=== PATIENT | female | born 1985 | race Caucasian/White ===

== ENCOUNTER → 2018-01-16 | Outpatient (CLI) | payer OTHER | LOC: M RAD 14:26 | DX: Z36.89 Encounter for other specified antenatal screening (principal); Z3A.19 19 weeks gestation of pregnancy | CPT/HCPCS: 76811 ==

== ENCOUNTER 2018-03-31 20:19 | Outpatient (CLI) | payer OTHER ==
[~2018-03-31] VITALS: Ht 162.6 cm; Wt 68.9 kg
[2018-03-31 20:37] VITALS: BP 104/61
--- NOTE | 2018-03-31 21:52 | IPNPDOC ---
Text Note Date of Service The patient was seen on 03/31/18. NOTE 32 yo at 30+6 weeks gestation presented to L&D with the complaint of decreased movement. She reports feeling the baby, just not as much as usual. She denies any vaginal bleeding, leakage of fluid, or contractions. Her is uncomplicated. While in triage she felt movement. Vitals - VSS, afebrile, normotensive, non tachycardic. General - AAOX3, sitting up in bed, NAD Abdomen - Gravid uterus, no fundal tenderness Extremities - No edema FHR tracing - BL 130, moderate variability, +accels, no decels, Cat I tracing, and appropriate for gestational age NST reassuring and patient felt movement in triage and was reassured. Discharged home with return precautions. We discussed return precautions. Andrew Vasquez DO VS,Fishbone, I+O VS, Fishbone, I+O Vital Signs Date Time Temp Pulse Resp B/P (MAP) Pulse Ox O2 Delivery O2 Flow Rate FiO2 03/31/18 20:37 98.4 85 104/61 (75) ANDREW VASQUEZ DO Mar 31, 2018 21:52
== END 2018-03-31 21:40 | disposition home or self-care (01) ==
LOC: M LDO 20:19
PROVIDERS: ATTEND Obstetrics & Gynecology
DX: O36.8130 Decreased fetal movements, third trimester, not applicable or unspecified (principal); Z3A.30 30 weeks gestation of pregnancy
CPT/HCPCS: 59025; G0378; G0463

== ENCOUNTER 2018-05-06 21:54 | Outpatient (CLI) | payer OTHER ==
[~2018-05-06] VITALS: Ht 162.6 cm; Wt 73.5 kg
[2018-05-06 22:16] VITALS: BP 118/71
[2018-05-06] MEDS ORDERED: PRENTAB9 PO (22:22)
[2018-05-06] MEDS ORDERED: TUMS500C PO (22:22)
[2018-05-06] MEDS ORDERED: FERR325T3 PO (22:22)
[2018-05-06] MEDS ORDERED: VITA500T PO (22:22)
--- NOTE | 2018-05-06 22:59 | IPNPDOC ---
Text Note Date of Service The patient was seen on 05/06/18. NOTE 32 yo at 36+0 weeks presented to L&D with the complaint of intermittent contractions over the last couple days that have been increasing in frequency and intensity this evening. She denies any vaginal bleeding, discharge, or leakage of fluid. She endorses excellent movement. is uncomplicated. Chaperoned by ALBERTA Whelan - VSS, afebrile, normotensive, non tachycardic General - AAOX3, sitting up in bed, NAD Abdomen - Gravid uterus, no fundal tenderness Cervix - Ft/thick/high FHR tracing - Cat I tracing and reactive NST. sporadic contractions on toco No evidence of labor. Cervix thick and high. Benign exam. Reassuring status. Patient discharged with return precautions. Next appointment scheduled for Tuesday. Return to care sooner for any urgent concerns. All patient questions answered. Andrew Vasquez DO VS,Fishbone, I+O VS, Fishbone, I+O Vital Signs Date Time Temp Pulse Resp B/P (MAP) Pulse Ox O2 Delivery O2 Flow Rate FiO2 05/06/18 22:16 98.0 88 18 118/71 (87) ANDREW VASQUEZ DO May 06, 2018 22:58
== END 2018-05-06 23:05 | disposition home or self-care (01) ==
LOC: M LDO 21:54
PROVIDERS: ATTEND Obstetrics & Gynecology
DX: O47.03 False labor before 37 completed weeks of gestation, third trimester (principal); Z3A.36 36 weeks gestation of pregnancy
CPT/HCPCS: 59025; G0378; G0463

== ENCOUNTER 2018-05-30 20:21 | Outpatient (CLI) | payer OTHER ==
[~2018-05-30] VITALS: Ht 162.6 cm; Wt 76.6 kg
[~2018-05-30 20:21] MED LIST: FERR325T3 PO; PRENTAB9 PO; TUMS500C PO; VITA500T PO
[2018-05-30] MEDS ORDERED: BUTORPHANOL 2 MG/ML INJ (J0595) As Ordered ONE (22:12)
[2018-05-30] MEDS ORDERED: PROMETHAZINE INJ 25 MG/ML VIAL (J2550) As Ordered ONE (22:12)
--- NOTE | 2018-05-30 22:38 | IPNPDOC ---
Text Note Date of Service The patient was seen on 05/30/18. NOTE [id number] @ 2230 32 yo @ 39+3 by LMP([id number]) and 8+4 wk US on [id number] presents to L&D Triage with c/o CTXs Q 4-5 min for the past 2 hours. Reports she had her membranes stripped in clinic earlier today. Denies DFM, LOF, and vaginal bleeding. S: Pt resting in bed in left tilt with c/o of CTXs. Spouse is at bedside O: VS- WNL, afebrile FHR- 120. moderate variability, + accels, no decels CTX-Q 1->10 min SVE by RN- 1-2 cm/thick, no change from SVE in clinic per patient A: 32 yo @ 39+3 reactive NST with no cervical change from exam in clinic P: Discharge to home with strict return precautions. Spent 10 min counseling on return precautions. Pt and spouse verbalized understanding. BEBETO MORALES CNM May 30, 2018 22:38
[2018-05-30 22:54] VITALS: BP 98/59
== END 2018-05-30 23:07 | disposition home or self-care (01) ==
LOC: M LDO 20:21
PROVIDERS: ATTEND Obstetrics & Gynecology
DX: O47.1 False labor at or after 37 completed weeks of gestation (principal); Z3A.39 39 weeks gestation of pregnancy
CPT/HCPCS: 59025; G0378; G0463

== ENCOUNTER 2018-06-09 15:45 | Inpatient (IN) | payer OTHER ==
[~2018-06-09] VITALS: Ht 162.6 cm; Wt 76.8 kg
[2018-06-09] VITALS (9 sets, daily range): BP systolic 95–119; BP diastolic 58–80
[2018-06-09] MEDS: LR 1,000 ML IV SCH (18:34)
[2018-06-09] MEDS ORDERED: PENICILLIN G POTASSIUM IV 5 MU in D5W MINI-BAG PLUS 100 ML IV STA (18:37)
[2018-06-09] MEDS ORDERED: OXYTOCIN DRIP 30 UNITS in APPROPRIATE DILUENT 1 EA IV SCH (18:45)
[2018-06-09 18:56] LABS: HEMATOCRIT 38.3 % (36.0-47.0); HEMOGLOBIN 13.1 g/dl (12.0-15.5); MEAN CORPUSCULAR HEMOGLOBIN 31.3 pg (27.0-33.0); MEAN CORPUSCULAR HGB CONC 34.2 g/dl (32.0-36.5); MEAN CORPUSCULAR VOLUME 91.4 fl (80.0-96.0); PLATELET COUNT, AUTOMATED 177 10^3/uL (150-450); RED BLOOD COUNT 4.19 10^6/uL (4.00-5.40); WHITE BLOOD COUNT 8.7 10^3/uL (4.0-10.0)
--- NOTE | 2018-06-09 21:21 | HPE ---
DATE OF ADMISSION: 06/09/2018 This lady is a 33-year-old 2, para 1, last menstrual period (LMP) 08/27/2017, estimated date of delivery (EDC) 06/03/2018 at 40 and 6 weeks of gestation for induction of labor. Risk factors is she has anemia and has an excessive weight gain in the . PAST HISTORY 2016 at 40 weeks and 4 days spontaneous vaginal delivery of female 7 pounds 10 ounces, prolonged labor 14 hours duration. Labs show A+, HIV negative, hep negative, rubella nonimmune. Varicella immune. Urine negative. Gonorrhea and chlamydia are negative, GTT 28-week was 99. GBS is positive. On examination, no acute distress. Symphysis fundus height is 42, vertex presenting -3 station, cervix is posterior 2 cm, 70% effaced. No vaginal bleeding or loss. Blood pressure is 119/80, respirations are 18, pulse is 93, temperature is 98.9. Urine is 10/15, pH of 6 and trace of protein. She has a category one strip with quite a bit of activity and movement and also hyperirritable uterus. The rest of the examination is unremarkable. She is normal normocephalic, atraumatic. Neck: Full range of motion. Pupils equal and reactive to light. Distal pulses symmetric. No evidence of DVT, PE or superficial phlebitis. Lungs are clear bilaterally to bases. No wheezes or rhonchi. Abdomen is soft. Four quadrant bowel sounds are noted. Seems to be a lot of baby or amniotic fluid. No rashes, lesions or pruritus. No arthralgia, myalgia or joint pain. No cough, wheezes, shortness of breath or dyspnea on exertion. No infection. No bleeding. No bruising. Neuro complete. No incontinency, urgency or frequency. No nausea, vomiting, diarrhea or constipation. No diabetic issues. PAST MEDICAL HISTORY AND GYNE HISTORY : Unremarkable. PAST SURGICAL HISTORY: Noncontributory. FAMILY HISTORY: Noncontributory. SOCIAL HISTORY: She is to a soldier. There is no domestic violence. Good support system. Consent for vaginal delivery. Counseling includes delivery of the baby through the vagina with possible assistance of forceps or vacuum device if needed for maternal or indications. Forceps or vacuum are devices that can assist with vaginal delivery when normal pushing efforts cannot achieve delivery on their own or when delivery is needed in an emergency for baby's well-being. Medications may be required to induce or augment labor in order achieve vaginal delivery. A episiotomy may be required to help the baby deliver vaginally. May also require repair of any lacerations or tears of the vagina, vulva that are caused by delivery. In some cases emergencies can occur that require emergency delivery so quickly that consent forms are not completed because of no time. However physician will discuss the reasons and indications for section and this is a decision about an abdominal delivery in situations where section may be safer to mom and baby than continuing labor and only performed when clinically indicated. The risks of vaginal delivery include but are not limited to bleeding, infection, injury to the vagina, pelvic structures, injury to baby, damage to uterus, reaction to anesthesia, uterine rupture, risk of hysterectomy for life-threatening bleeding or . Medications used to induce or augment labor may increase the risk of infection, uterine tachysystole, uterine rupture, heart rate abnormalities, need for emergency section delivery for possible hysterectomy and hemorrhage. Additional risks for the use of forceps or vacuum include scratches, hematomas on the head or intracranial bleed. The patient expressed understanding, both her and her . All questions were answered. We did discuss the fact that she is GBS positive and the window of time that we would like to have before delivery is 4 hours. Therefore prophylactic penicillin will be started. We do not want to put a Flores bulb at the immediate present because of the GBS and she is having some uterine hypermobility. We will reevaluate her in 4 hours time and if appropriate either a Flores bulb will be placed and artificial rupture of membranes (AROM) or augmenting with oxytocin as the window for GBS positive will have passed and reduces the risk of infection to the fetus. All questions were answered.
[2018-06-09] MEDS: PENICILLIN G POTASSIUM IV 2.5 MU in APPROPRIATE DILUENT 1 EA IV SCH (23:40)
[2018-06-10] VITALS (37 sets, daily range): BP systolic 88–141; BP diastolic 53–87
[2018-06-10] MEDS ORDERED: FENTANYL 2MCG/ML ROPIVACAINE 0.2% IN 0.9% NACL 100ML IVBAG As Ordered ONE (00:10)
[2018-06-10] MEDS ORDERED: NALOXONE INJ 0.4 MG/1 ML VIAL (J2310) IV PRN (00:30)
[2018-06-10] MEDS ORDERED: FENTANYL/ROPIVACAINE/NACL BAG 100 ML EPIDURAL SCH (00:30)
[2018-06-10] MEDS ORDERED: ONDANSETRON 4MG/2ML VIAL (J2405) IV PRN (00:30)
[2018-06-10] MEDS ORDERED: EPIDURAL COMMENT XX SCH (00:30)
[2018-06-10] MEDS ORDERED: LACTATED RINGER'S 1000 ML IV PRN (00:30)
[2018-06-10] MEDS ORDERED: EPIDURAL/PCA KEYS XX PRN (00:30)
[2018-06-10] MEDS ORDERED: ePHEDrine SULFATE 25 MG/5 ML(5MG/ML) SYRINGE IV PRN (00:30)
[2018-06-10] MEDS ORDERED: REFRIGERATOR IV KEYS XX PRN (00:30)
[2018-06-10] MEDS ORDERED: diphenhydrAMINE INJ 50MG/ML VIAL (J1200) IV PRN (00:30)
[2018-06-10] MEDS: LR 1,000 ML IV SCH (02:34)
[2018-06-10] MEDS: PENICILLIN G POTASSIUM IV 2.5 MU in APPROPRIATE DILUENT 1 EA IV SCH (02:45)
[2018-06-10 05:07] LABS: CORD GAS ABE V -4.1; CORD GAS HCO3 V 21.7 MEQ/L; CORD GAS O2 SAT V 60.5 %; CORD GAS PCO2 V 42.4 mmHg; CORD GAS PH V 7.327 UNITS; CORD GAS PO2 V 25.7 mmHg; CORD GAS SBC V 20.1 MEQ/L
[2018-06-10] MEDS ORDERED: MOM 30ML SUSPENSION UDC PO PRN (05:15)
[2018-06-10] MEDS ORDERED: ANUSOL HC CREAM 30GM TOP PRN (05:15)
[2018-06-10] MEDS ORDERED: DOCUSATE SODIUM 100 MG CAP PO PRN (05:15)
[2018-06-10] MEDS ORDERED: MEASLES,MUMPS,RUBELLA VACCINE INJ (MMR-II) (90707) SC SCH (05:15)
[2018-06-10] MEDS ORDERED: RHOGAM 300 MCG (1500 IU) INJ (J2790) IM SCH (05:15)
[2018-06-10] MEDS ORDERED: DIBUCAINE 1% OINTMENT 30GM TOP PRN (05:15)
[2018-06-10] MEDS ORDERED: METHYLERGONOVINE MALEATE 0.2 MG TAB PO PRN (05:15)
[2018-06-10 05:18] LABS: CORD GAS ABE A -5.1; CORD GAS O2 SAT A 26.6 %; CORD GAS PH A 7.213 UNITS; CORD GAS PO2 A 15.7 mmHg; CORD GAS SBC A 18.5 MEQ/L; CORD GAS TCO2 A 25.9 MEQ/L
[2018-06-10] MEDS ORDERED: OXYTOCIN INJ 10 UNITS/ML VIAL (J2590) IV ONE (06:00)
[2018-06-10] MEDS: IBUPROFEN 600 MG TAB PO PRN ×3 (06:24→21:19)
[2018-06-10] MEDS: ACETAMINOPHEN 500 MG TAB PO PRN ×3 (06:24→17:20)
[2018-06-10] MEDS: PRENATAL VITAMINS CHEWABLE TABLET PO SCH (09:00)
--- NOTE | 2018-06-10 15:46 | DN ---
DATE: 06/10/2018 This is a 33-year-old 2 who was admitted induction of labor at 40 and 6 weeks of gestation. She was GBS positive. Was treated appropriately. She had augmentation of labor with Pitocin at the appropriate interval after epidural in place. She had artificial rupture of membranes (ARM) draining clear liquor, moderate amount of fluid consistent with polyhydramnios. Eventually at full dilatation had a spontaneous vaginal delivery over a midline episiotomy. A live- female , 10 pounds 1 ounce, 4584 grams. scores of 8 and 9 at one and five minutes, respectively. Arterial and venous pH were performed. The venous pH is available at 7.32, base excess -4.1. Arterial pH is not available at the present time. The placenta delivered spontaneously thereafter. Three-vessel cord. Membranes and tissues intact. The uterus contracted well down on Pitocin. The midline episiotomy was oversewn in the usual fashion with a 2-0 J339 Vicryl. Sphincter was intact. Lateral, posterior, and anterior hinojosa were intact. Uterus contracted well down with Pitocin drip. In summary, we have a post-age gestation induction of labor. Delivered a macrosomic female infant with a midline episiotomy, which was repaired in the usual fashion. The patient and baby tolerating the procedure well.
[2018-06-11] MEDS: ACETAMINOPHEN 500 MG TAB PO PRN ×2 (04:24→11:01)
[2018-06-11 05:55] VITALS: BP 104/59
[2018-06-11 07:08] LABS: HEMOGLOBIN 11.6 g/dl (12.0-15.5); MEAN CORPUSCULAR HEMOGLOBIN 30.7 pg (27.0-33.0); MEAN CORPUSCULAR HGB CONC 33.1 g/dl (32.0-36.5); MEAN CORPUSCULAR VOLUME 92.6 fl (80.0-96.0); PLATELET COUNT, AUTOMATED 206 10^3/uL (150-450); RED BLOOD COUNT 3.78 10^6/uL (4.00-5.40); WHITE BLOOD COUNT 11.9 10^3/uL (4.0-10.0)
[2018-06-11] MEDS: IBUPROFEN 600 MG TAB PO PRN (07:56)
--- NOTE | 2018-06-11 08:54 | IPNPDOC ---
Progress Note Date of Service: Jun 11, 2018 Day#: 1 Progress Note PPD 1 SUBJECT: Mari is a 33yo [id number] s/p uncomplicated at 40w6d after undergoing IOL with no vaginal laceration, doing well day # 1. She has been ambulating, voiding spontaneously without issue and tolerating regular diet. Breast feeding without issue. Reports lochia is like a normal period. No f /c/n/v/CP/SOB. OBJECTIVE: VITAL SIGNS: Within normal limits, afebrile. Alert and oriented times three. Abdomen: Fundus firm at U-2. Soft, NTTP. Extremities: no pain with palpation of calves ASSESSMENT: Mari is a 33yo [id number] s/p uncomplicated at 40w6d after undergoing IOL with no vaginal laceration, doing well day # 1. Vitals within normal limits, afebrile, hemodynamically stable with no evidence of infection. PLAN: 1. Discharge to home today. 2. Tylenol and Motrin for pain. 3. Encourage breast feeding and ambulation. 4. uncertain regarding contraception, will discuss at PP visit 5. Routine PP visit in 6 weeks in clinic. 6. Discussed return precautions at length. Dr. Rena Alvarado MD VS, I&O, 24H, Fishbone Vital Signs/I&O Vital Signs Date Time Temp Pulse Resp B/P (MAP) Pulse Ox O2 Delivery O2 Flow Rate FiO2 06/11/18 05:55 97.5 65 17 104/59 (74) I&O- Last 24 Hours up to 6 AM 06/11/18 05:59 Intake Total 4375 ml Output Total 1200 ml Balance 3175 ml Laboratory Data 24H LABS Laboratory Tests 2 06/11/18 06:43: Nucleated Red Blood Cells % (auto) 0.0 CBC/BMP Laboratory Tests 06/11/18 06:43 Red Blood Count 3.78 L, Mean Corpuscular Volume 92.6, Mean Corpuscular Hemoglobin 30.7, Mean Corpuscular Hemoglobin Concent 33.1, Red Cell Distribution Width 13.9 Rena Alvarado MD Jun 11, 2018 08:54
[2018-06-11] MEDS: PRENATAL VITAMINS CHEWABLE TABLET PO SCH (09:00)
[2018-06-11] MEDS ORDERED: IBUP-1114 PO (10:29)
[2018-06-11] MEDS ORDERED: MAPA500T2 PO (10:29)
== END 2018-06-11 12:12 | disposition home or self-care (01) | DRG 833 ==
LOC: M LDI 15:45 → M OBS 06-10 08:14
PROVIDERS: ADMIT Obstetrics & Gynecology; ATTEND Obstetrics & Gynecology
PROC: 3E033VJ Introduction of Other Hormone into Peripheral Vein, Percutaneous Approach (ICD-10-PCS; 2018-06-09)
PROC: 0W8NXZZ Division of Female Perineum, External Approach (ICD-10-PCS; principal; 2018-06-10)
PROC: 10907ZC Drainage of Amniotic Fluid, Therapeutic from Products of Conception, Via Natural or Artificial Opening (ICD-10-PCS; 2018-06-10)
DX: O48.0 Post-term pregnancy (principal); Z37.0 Single live birth; Z3A.40 40 weeks gestation of pregnancy; O99.820 Streptococcus B carrier state complicating pregnancy; O40.3XX0 Polyhydramnios, third trimester, not applicable or unspecified; D64.9 Anemia, unspecified; O99.02 Anemia complicating childbirth; R63.5 Abnormal weight gain; O26.00 Excessive weight gain in pregnancy, unspecified trimester